=== PATIENT | female | born 1960 | race Caucasian/White ===

== ENCOUNTER 2023-11-12 21:42 | Emergency (ER) | payer MEDICAID ==
[~2023-11-12] VITALS: Ht 154.9 cm; Wt 77.0 kg
[2023-11-12 22:00] VITALS: TEMP 99.6; O2SAT 99
[2023-11-13] MEDS: HYDROCODONE/ACETAMINOPHEN 5/325MG TABLET PO NR (00:22)
[2023-11-13] MEDS: LIDOCAINE HCL/PF 1% 10 MG/ML 5ML VIAL INFIL NR (00:30)
[2023-11-13] MEDS: CEPHALEXIN 250MG CAPSULE PO NR (00:30)
[2023-11-13] MEDS: BACITRACIN ZINC OINT UDPKT TOP NR (00:30)
[2023-11-13] MEDS ORDERED: HYDR-4001 MT (01:59)
[2023-11-13] MEDS ORDERED: CEPH500T MT (01:59)
[2023-11-13] MEDS: TETANUS, DIPHTHERIA, PERTUSSIS VAC/PF 0.5ML (>10YR OLD) IM ONE (02:15)
[2023-11-13 03:45] VITALS: BP 168/62; PULSE 71; RESP 17
== END 2023-11-13 03:55 | disposition home or self-care (01) ==
LOC: ER 21:42
DX: S92.401A Displaced unspecified fracture of right great toe, initial encounter for closed fracture (principal); I10 Essential (primary) hypertension; Z98.890 Other specified postprocedural states; Z90.49 Acquired absence of other specified parts of digestive tract; X58.XXXA Exposure to other specified factors, initial encounter; Y93.89 Activity, other specified; Y92.89 Other specified places as the place of occurrence of the external cause; Y99.8 Other external cause status
CPT/HCPCS: 73620; 99284; 90715; 90471; J3490; Z7610 ×2